=== PATIENT | male | born 1985 | race Caucasian/White ===

== ENCOUNTER 2020-07-11 09:20 | Outpatient (CLI) | payer OTHER | END 2020-07-11 09:21 | disposition home or self-care (01) | LOC: EKG 09:20 | PROVIDERS: ATTEND Family Medicine | DX: R42 Dizziness and giddiness (principal); R03.0 Elevated blood-pressure reading, without diagnosis of hypertension; Z82.49 Family history of ischemic heart disease and other diseases of the circulatory system | CPT/HCPCS: 93005; 93010 ==